=== PATIENT | male | born 1980 | race Caucasian/White ===

== ENCOUNTER 2022-03-20 19:20 | Emergency (ER) | payer OTHER | END 2022-03-20 22:16 | disposition home or self-care (01) | LOC: MERGE 19:20 → JD.ED 19:20 | DX: R07.89 Other chest pain (principal); F17.210 Nicotine dependence, cigarettes, uncomplicated | CPT/HCPCS: 36415; 71045; 71045-26; 80053; 83735; 84484; 85025; 93005; 99285 ==

== ENCOUNTER 2022-09-30 15:12 | Emergency (ER) | payer OTHER | END 2022-09-30 16:14 | disposition home or self-care (01) | LOC: JD.ED 15:12 | DX: F41.9 Anxiety disorder, unspecified (principal); I10 Essential (primary) hypertension; Z72.0 Tobacco use; Z79.899 Other long term (current) drug therapy | CPT/HCPCS: 99283 ==